=== PATIENT | male | born 1955 | race Caucasian/White ===

== ENCOUNTER 2023-01-17 16:14 | Observation (INO) | payer OTHER ==
[~2023-01-17] VITALS: Ht 172.7 cm; Wt 64.0 kg
[~2023-01-17 16:14] MED LIST: GABA300 PO; LISI5 PO; LORA1 PO; METO25ER PO; MORP30ER PO; OMEP10ER PO; OXYC10TA19 PO; PARO20 PO; PERCOCET 10/325 PO; PRAV20 PO; TRAZ50 PO
[2023-01-17 17:17] LABS: BASOPHILS ABSOLUTE AUTO 0.04 K/mm3 (0.00-0.23); BASOPHILS PERCENT AUTO 1 % (0-2); EOSINOPHILS ABSOLUTE AUTO 0.34 K/mm3 (0.00-0.68); EOSINOPHILS PERCENT AUTO 4 % (0-6); Hematocrit 31.5 % (37.0-53.0); IMMATURE GRAN ABSOLUTE AUTO 0.01 K/mm3 (0.00-0.10); IMMATURE GRAN PERCENT AUTO 0 % (0-1); LYMPHOCYTES ABSOLUTE AUTO 1.54 K/mm3 (0.84-5.20); LYMPHOCYTES PERCENT AUTO 19 % (21-46); MONOCYTES ABSOLUTE AUTO 0.55 K/mm3 (0.16-1.47); MONOCYTES PERCENT AUTO 7 % (4-13); Mean Corpuscular HGB 26.7 pg (26.0-34.0); Mean Corpuscular HGB Conc 31.7 g/dL (31.5-36.5); Mean Corpuscular Volume 84 fL (80-100); Mean Platelet Volume 10.2 fL (9.1-12.4); NEUTROPHILS ABSOLUTE AUTO 5.59 K/mm3 (1.96-9.15); NEUTROPHILS PERCENT AUTO 69 % (41-73); Platelet Count 162 K/mm3 (150-400); RDW Coefficient Variation 13.3 % (11.7-14.2); RDW Standard Deviation 40.6 fL (35.1-46.3); Red Blood Cell Count 3.75 M/mm3 (4.30-5.90); White Blood Cell Count 8.07 K/mm3 (4.00-11.30)
[2023-01-17 17:27] LABS: Albumin, Blood 3.5 g/dL (3.4-5.0); Albumin/Globulin Ratio 1.1 (0.8-1.8); Bilirubin, Total 0.2 mg/dL (0.1-1.0); Bun/Creatinine Ratio 14.6 (12.0-20.0); Calcium, Blood 8.6 mg/dL (8.5-10.1); Creatinine, Blood 1.03 mg/dL (0.60-1.20); Globulin, Blood 3.1 g/dL (2.2-4.0); Potassium, Blood 3.8 mmol/L (3.5-5.5); Total Protein, Blood 6.6 g/dL (6.4-8.2)
[2023-01-17 17:45] LABS: International Normalized Ratio 0.97; Prothrombin Time Results 10.2 Sec (9.7-11.5)
[2023-01-17] MEDS ORDERED: PLAVIX75 MG PO (19:50)
--- NOTE | 2023-01-17 21:00 | NUR ---
ADMIT NOTE; THE PT ARRIVES FROM THE ED VIA WHEELCHAIR. THE PT IS ABLE TO TRANSFER HIMSELF FROM THE WHEELCHAIR TO THE ED BED W/O DIFFICULTY. THE PT IS AXO X4. THE PT DENIES AND CHEST PAIN/PREESURE OR SOB UPON ADMIT. UPON ADMIT THERE ARE NO ACUTE COMPLAINTS WELL THE PT DOES NOT APPEAR TO BE IN ANY ACUTE DISTRESS.
[2023-01-18] MEDS ORDERED: IMIPRAMINE HCL50 M1 PO (01:37)
--- NOTE | 2023-01-18 04:23 | NUR ---
SHIFT SUMMARY; NO ACUTE CHANGES OVERNIGHT. THE PT IS AXO X4 AND A STANDBY ASSIST IN THE ROOM. TELE IS IN PLACE, SINUS RYTHM WITH A 1ST DEGREE HEART BLOCK IN THE 60'S. THE PT REPORTS THAT HIS VISION IS STILL BLURRED BUT THAT IT HAS NOT PROGRESSED SINCE ADMIT. THE PT REPORTS CHRONIC GERNEALIZED PAIN FOR WHICH HE WAS MEDICATED FOR PER THE EMAR. THE PT DENIES ANY SOB, CHEST PAIN/PRESSURE OR N/V. CURRENTLY THE PT IS RESTING IN BED WITH THE BED IN THE LOWEST POSITION AND THE CALL LIGHT AT BEDSIDE.
--- NOTE | 2023-01-18 07:00 | NUR ---
PATIENT REPORTS THAT HE NO LONGER TAKES PAXIL.
--- NOTE | 2023-01-18 07:27 | NUR ---
ASSUMED CARE OF PT- BEDSIDE REPORT COMPLETED WITH NIGHT RN. PT ALERT AND ORIENTED AT THE TIME OF BEDSIDE REPORT. PT ADMITTED THROUGH THE ED AFTER AN EPISODE OF TEMPORARY BLINDNESS, PT HAS HAD CONTINUED BLURRED VISION, HE STATES IT HAS IMPROVED AND SEEMS TO BE GETTING BETTER QUICKLY NOW. PT SITTING UP IN BED, CALL LIGHT IN REACH NO S&S OF DISTRESS NOTED AT THE TIME OF REPORT. PT IS NOT ABLE TO ACCURATELY TELL STAFF WHAT MEDS, DOSES AND FREQUENCY HE TAKES AT HOME, PER REPORT HE DENIES TAKING PAXIL ANY MORE AT HOME. PT STATED HE USES [facility], WILL CONTACT THEM WHEN THEY OPEN FOR A LIST OF ACTIVE MEDICATIONS.
--- NOTE | 2023-01-18 14:36 | NUR ---
CALLED DR MANCILLA- THE RESULTS OF THE PT MRI ARE IN. HE IS AWARE AND IS COMIN G TO SPEAK TO THE PT SHORTLY AND DC HOME WITH AN OPTOMOLOGY FOLLOW UP.
--- NOTE | 2023-01-18 15:15 | NUR ---
DISCHARGE NOTE- PT AND SPOUSE WERE GIVEN VERBAL AND WRITTEN DISCHARGE INSTRUCTIONS AND ACKNOWLEDGED UNDERSTANDING OF THEM. MEDS FAXED TO [facility] ON [address], PT STATED HE HAS SOME PLAVIX AT HOME SO THE FACT THAT THE PHARMACY IS CLOSED TODAY IS NOT AN ISSUE. PT TELE AND IV DC'D AT THE TIME OF DISCHARGE TEACHING. PT ESCORTED OUT VIA WC BY THE AERIAL PHOTOGRAMMETRIST. NO S&S OF DISTRESS AT THE TIME OF DISCHARGE.
== END 2023-01-18 15:12 | disposition home or self-care (01) ==
LOC: ER 16:14 → MEDS 18:17
PROVIDERS: Emergency Medicine; Student in an Organized Health Care Education/Training Program; ADMIT Hospitalist
DX: G45.3 Amaurosis fugax (principal); I25.10 Atherosclerotic heart disease of native coronary artery without angina pectoris; E78.5 Hyperlipidemia, unspecified; I10 Essential (primary) hypertension; K40.90 Unilateral inguinal hernia, without obstruction or gangrene, not specified as recurrent; Z88.8 Allergy status to other drugs, medicaments and biological substances
CPT/HCPCS: 36415; 70450; 70551; 80053; 85025; 85610; 93005; 93010; 93306; 93880; 99285-25; A9270; G0378